=== PATIENT | female | born 1970 | race Two or more races ===

== ENCOUNTER → 2018-03-01 | Outpatient (CLI) | payer BC ==
--- NOTE | 2018-03-06 10:05 | USB ---
Reason for exam: clinical finding. History: Family history of breast cancer in maternal aunt at age 40. Took hormonal contraceptives for 6 years beginning at age 18. Indicated problem(s): palpable abnormality in the left breast. Physical Findings: Nurse Summary: Patient complains of left breast lump x 4 days, 1.5cm movable nodule 2 o'clock (nurse mj). US Breast BILAT Right complete breast ultrasound includes all four quadrants, the retroareolar region and axilla. Finding demonstrates a 8mm oval, cystic lesion at 11 o'clock and a 4mm oval, cystic lesion at 10 o'clock. Left complete breast ultrasound includes all four quadrants, the retroareolar region and axilla. Finding demonstrates a 18 x 13 x 16mm thick walled cyst with debris at 2 o'clock-peripheral vascular flow irregular margins biopsy recommended and a 11mm oval, cystic lesion at 11 o'clock. These results were verbally communicated with the patient and result sheet given to the patient on 03/01/18. ASSESSMENT: Suspicious, BI-RAD 4 RECOMMENDATION: Ultrasound core biopsy of the left breast. (2 o'clock) Called Dr. Pruett with mammographic findings and patient requests to see Dr. Pruett prior to biopsy or seeing surgeon. PRELIMINARY REPORT CALLED AND FAXED TO ON 03/06/18.
--- NOTE | 2018-03-06 10:06 | MM ---
Reason for exam: clinical finding. Last mammogram was performed 3 years and 6 months ago. History: Family history of breast cancer in maternal aunt at age 40. Took hormonal contraceptives for 6 years beginning at age 18. Indicated problem(s): palpable abnormality in the left breast. MG 3D Diag Mammo W/Cad KATIE Bilateral CC and MLO view(s) were taken. Prior study comparison: August 29, 2014, bilateral MG screening mammo w CAD. The breast tissue is extremely dense which could obscure a lesion on mammography. There is no discrete abnormality. BB turpin palpable abnormality. These results were verbally communicated with the patient and result sheet given to the patient on 03/01/18. ASSESSMENT: Benign, BI-RAD 2 RECOMMENDATION: Surgical consultation and ultrasound core biopsy of the left breast. Called Dr. Pruett with mammographic findings and patient requests to see Dr. Pruett prior to biopsy or seeing surgeon. PRELIMINARY REPORT CALLED AND FAXED TO ON 03/06/18.
== END | disposition home or self-care (01) ==
LOC: RADUSWWP 15:21
PROVIDERS: ATTEND Family Medicine
DX: R92.8 Other abnormal and inconclusive findings on diagnostic imaging of breast (principal)
CPT/HCPCS: 77062; 77066

== ENCOUNTER 2019-09-03 14:32 | Emergency (ER) | payer BC ==
[2019-09-03 14:51] VITALS: RESP 16
[2019-09-03] MEDS ORDERED: ONDANSETRON 4 MG/2 ML VIAL IVP STA (15:34)
[2019-09-03] MEDS ORDERED: SODIUM CHLORIDE 0.9% 1,000 ML IV STA ×2 (15:34)
[2019-09-03] MEDS ORDERED: KETOROLAC 30 MG/ML 1 ML VIAL IVP STA (15:34)
[2019-09-03] MEDS ORDERED: PANTOPRAZOLE 40 MG/10 ML VIAL IVP STA (15:34)
--- NOTE | 2019-09-03 16:12 | ED ---
Abdominal Pain HPI - General Chief Complaint: Abdominal Pain Stated Complaint: Abd pain Time Seen by Provider: 09/03/19 15:18 Source: patient, RN notes reviewed, old records reviewed Mode of arrival: ambulatory Limitations: no limitations - History of Present Illness Initial Comments: Patient is a 49-year-old female who presents emergency department today for evaluation for abdominal pain, concern for constipation, also episodes of vomiting and abdominal distention. Patient states that she saw her primary care doctor and they were told that she was quite constipated. She's been doing MiraLAX and stool softeners to promote bowel movements but has been unsuccessful. Patient states that she is a suppository did have a very small loose stool afterwards. She denies passing gas. Surgical history includes C section - Related Data Home Medications Medication Instructions Recorded Confirmed Ibuprofen [Advil] 200 mg PO Q8HR PRN 09/03/19 09/03/19 Magnesium 200 mg PO DAILY 09/03/19 09/03/19 Multivitamins, Thera [Multivitamin 1 tab PO DAILY 09/03/19 09/03/19 (formulary)] Previous Rx's Medication Instructions Recorded Ciprofloxacin HCl [Cipro] 500 mg PO BID #20 tab 09/03/19 Ondansetron [Zofran ODT] 4 mg PO Q8HR #12 tab 09/03/19 metroNIDAZOLE [Flagyl] 500 mg PO TID #30 tab 09/03/19 Allergies Allergy/AdvReac Type Severity Reaction Status Date / Time No Known Allergies Allergy Verified 09/04/19 20:05 Review of Systems ROS Statement: Those systems with pertinent positive or pertinent negative responses have been documented in the HPI. ROS Other: All systems not noted in ROS Statement are negative. Past Medical History Past Medical History: No Reported History History of Any Multi-Drug Resistant Organisms: None Reported Past Surgical History: Section Past Psychological History: No Psychological Hx Reported Smoking Status: Never smoker Past Alcohol Use History: Occasional Past Drug Use History: None Reported General Exam - General Exam Comments Initial Comments: Is a 49-year-old female. Patient is in moderate discomfort, appears somewhat anxious as well. Limitations: no limitations General appearance: alert, in no apparent distress Head exam: Present: atraumatic, normocephalic, normal inspection Eye exam: Present: normal appearance, PERRL, EOMI. Absent: scleral icterus, conjunctival injection, periorbital swelling ENT exam: Present: normal exam, mucous membranes moist Neck exam: Present: normal inspection. Absent: tenderness, meningismus, lymphadenopathy Respiratory exam: Present: normal lung sounds bilaterally. Absent: respiratory distress, wheezes, rales, rhonchi, stridor Cardiovascular Exam: Present: regular rate, normal rhythm, normal heart sounds. Absent: systolic murmur, diastolic murmur, rubs, gallop, clicks GI/Abdominal exam: Present: soft, normal bowel sounds. Absent: distended, tenderness, guarding, rebound, rigid Extremities exam: Present: normal inspection, full ROM, normal capillary refill. Absent: tenderness, pedal edema, joint swelling, calf tenderness Back exam: Present: normal inspection Neurological exam: Present: alert, oriented X3, CN II-XII intact Psychiatric exam: Present: normal affect, normal mood Skin exam: Present: warm, dry, intact, normal color. Absent: rash Course Vital Signs 09/03/19 09/03/19 14:47 19:08 Temperature 98.1 F 98.0 F Pulse Rate 81 87 Respiratory 16 16 Rate Blood Pressure 117/75 117/87 O2 Sat by Pulse 98 99 Oximetry Medical Decision Making - Medical Decision Making 49 year old female with abdominal pain, distension, nausea, and vomiting for 3 days. Patient is given fluids labwork obtained. Patient's labwork shows evidence of dehydration. Positive ketones in urine. Hypokalemia. Due to the distention and CT was ordered. There is findings of new ascites, and ileus. I discussed that I like to admit the Patient for ileus. She stated that she preferred to go home she was feeling better after receiving IV fluids and pain medicine emergency. I did discuss that this could be concerning but we'll treat the Patient with antibiotics at this time even if she does leave AMA. 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 I Discussed the case with Dr. Topete. - Lab Data Result diagrams: 09/03/19 14:05 09/03/19 14:05 Lab Results 09/03/19 09/03/19 09/03/19 Range/Units 14:05 14:05 14:05 WBC 7.0 (3.8-10.6) k/uL RBC 4.41 (3.80-5.40) m/uL Hgb 13.6 (11.4-16.0) gm/dL Hct 40.5 (34.0-46.0) % MCV 91.9 (80.0-100.0) fL MCH 30.9 (25.0-35.0) pg MCHC 33.6 (31.0-37.0) g/dL RDW 12.3 (11.5-15.5) % Plt Count 251 (150-450) k/uL Neutrophils % 79 % Lymphocytes % 14 % Monocytes % 5 % Eosinophils % 1 % Basophils % 1 % Neutrophils # 5.5 (1.3-7.7) k/uL Lymphocytes # 0.9 L (1.0-4.8) k/uL Monocytes # 0.3 (0-1.0) k/uL Eosinophils # 0.1 (0-0.7) k/uL Basophils # 0.0 (0-0.2) k/uL PT 10.8 (9.0-12.0) sec INR 1.0 (<1.2) APTT 28.6 (22.0-30.0) sec Sodium 139 (137-145) mmol/L Potassium 3.3 L (3.5-5.1) mmol/L Chloride 103 (98-107) mmol/L Carbon Dioxide 24 (22-30) mmol/L Anion Gap 12 mmol/L BUN 9 (7-17) mg/dL Creatinine 0.63 (0.52-1.04) mg/dL Est GFR (CKD-EPI)AfAm >90 (>60 ml/min/1.73 sqM) Est GFR (CKD-EPI)NonAf >90 (>60 ml/min/1.73 sqM) Glucose 101 H (74-99) mg/dL Plasma Lactic Acid Dennis (0.7-2.0) mmol/L Calcium 9.4 (8.4-10.2) mg/dL Total Bilirubin 0.7 (0.2-1.3) mg/dL AST 19 (14-36) U/L ALT 18 (9-52) U/L Alkaline Phosphatase 57 (38-126) U/L Total Protein 7.4 (6.3-8.2) g/dL Albumin 4.5 (3.5-5.0) g/dL Amylase 72 (30-110) U/L Lipase 93 (23-300) U/L Urine Color Urine Appearance (Clear) Urine pH (5.0-8.0) Ur Specific [place] (1.001-1.035) Urine Protein (Negative) Urine Glucose (UA) (Negative) Urine Ketones (Negative) Urine Blood (Negative) Urine Nitrite (Negative) Urine Bilirubin (Negative) Urine Urobilinogen (<2.0) mg/dL Ur Leukocyte Esterase (Negative) Urine RBC (0-5) /hpf Urine WBC (0-5) /hpf Ur Squamous Epith Cells (0-4) /hpf Amorphous Sediment (None) /hpf Urine Bacteria (None) /hpf Hyaline Casts (0-2) /lpf Urine Mucus (None) /hpf 09/03/19 09/03/19 Range/Units 14:05 16:20 WBC (3.8-10.6) k/uL RBC (3.80-5.40) m/uL Hgb (11.4-16.0) gm/dL Hct (34.0-46.0) % MCV (80.0-100.0) fL MCH (25.0-35.0) pg MCHC (31.0-37.0) g/dL RDW (11.5-15.5) % Plt Count (150-450) k/uL Neutrophils % % Lymphocytes % % Monocytes % % Eosinophils % % Basophils % % Neutrophils # (1.3-7.7) k/uL Lymphocytes # (1.0-4.8) k/uL Monocytes # (0-1.0) k/uL Eosinophils # (0-0.7) k/uL Basophils # (0-0.2) k/uL PT (9.0-12.0) sec INR (<1.2) APTT (22.0-30.0) sec Sodium (137-145) mmol/L Potassium (3.5-5.1) mmol/L Chloride (98-107) mmol/L Carbon Dioxide (22-30) mmol/L Anion Gap mmol/L BUN (7-17) mg/dL Creatinine (0.52-1.04) mg/dL Est GFR (CKD-EPI)AfAm (>60 ml/min/1.73 sqM) Est GFR (CKD-EPI)NonAf (>60 ml/min/1.73 sqM) Glucose (74-99) mg/dL Plasma Lactic Acid Dennis 0.8 (0.7-2.0) mmol/L Calcium (8.4-10.2) mg/dL Total Bilirubin (0.2-1.3) mg/dL AST (14-36) U/L ALT (9-52) U/L Alkaline Phosphatase (38-126) U/L Total Protein (6.3-8.2) g/dL Albumin (3.5-5.0) g/dL Amylase (30-110) U/L Lipase (23-300) U/L Urine Color Yellow Urine Appearance Cloudy H (Clear) Urine pH 5.5 (5.0-8.0) Ur Specific [place] 1.030 (1.001-1.035) Urine Protein 1+ H (Negative) Urine Glucose (UA) Negative (Negative) Urine Ketones 4+ H (Negative) Urine Blood Small H (Negative) Urine Nitrite Negative (Negative) Urine Bilirubin Negative (Negative) Urine Urobilinogen <2.0 (<2.0) mg/dL Ur Leukocyte Esterase Moderate H (Negative) Urine RBC 8 H (0-5) /hpf Urine WBC 29 H (0-5) /hpf Ur Squamous Epith Cells 4 (0-4) /hpf Amorphous Sediment Occasional H (None) /hpf Urine Bacteria Rare H (None) /hpf Hyaline Casts 1 (0-2) /lpf Urine Mucus Moderate H (None) /hpf 09/03/19 20:37 EKG shows normal sinus rhythm normal EKG. Ventricular rate of [address] interval is 162 ms. QRS duration is 74 ms. QT QTc is 414/416 ms. - Radiology Data Radiology results: report reviewed Mild abdominal ascites, dilated large bowel and mild large owel wall thickening suggestive of ilues and colitis. Disposition Clinical Impression: Ileus, Colitis, UTI (urinary tract infection), Ascites Disposition: Left Against Medical Advice Condition: Stable Instructions (If sedation given, give patient instructions): Ileus (ED), Colitis (ED) Additional Instructions: Patient is have clear liquid diet. Patient should increase activity such as holding walking. Remain hydrated. Take the antibiotics as prescribed. Patient follow-up with your primary care doctor tomorrow. Prescriptions: Ciprofloxacin HCl [Cipro] 500 mg PO BID #20 tab metroNIDAZOLE [Flagyl] 500 mg PO TID #30 tab Ondansetron [Zofran ODT] 4 mg PO Q8HR #12 tab Is patient prescribed a controlled substance at d/c from ED?: No Referrals: Afshan Pruett DO [Primary Care Provider] - 1-2 days Willy Agrawal MD [STAFF PHYSICIAN] - 1-2 days Time of Disposition: 18:27
[2019-09-03 16:15] LABS: Basophils % (A) 1 %; Eosinophils # (A) 0.1 k/uL (0-0.7); Eosinophils % (A) 1 %; HCT 40.5 % (34.0-46.0); HGB 13.6 gm/dL (11.4-16.0); Lymphocytes # (A) 0.9 k/uL (1.0-4.8); Lymphocytes % (A) 14 %; MCH 30.9 pg (25.0-35.0); MCHC 33.6 g/dL (31.0-37.0); MCV 91.9 fL (80.0-100.0); Mean Platelet Volume 6.1; Monocytes # (A) 0.3 k/uL (0-1.0); Monocytes % (A) 5 %; Neutrophils # (A) 5.5 k/uL (1.3-7.7); Neutrophils % (A) 79 %; Platelet Count 251 k/uL (150-450); RBC 4.41 m/uL (3.80-5.40); RDW 12.3 % (11.5-15.5)
--- NOTE | 2019-09-03 16:21 | XR ---
KUB HISTORY: Abdominal pain, nausea and vomiting Frontal KUB submitted on 2 images and correlated to prior abdomen film 11/19/2010 There are air-fluid levels with air-filled loops of small and large bowel. Lung bases are clear. No e vident pneumoperitoneum. Bone mineralization is normal. No evident pathologic calcification. Bone min eralization is normal. Probable phleboliths in the pelvis. IMPRESSION: Findings may be indicative of enteritis. Correlate and follow-up as indicated.
[2019-09-03 16:22] LABS: Amorphous Sediment,Urine Occasional /hpf; Appearance,Urine Cloudy (Clear); Bacteria,Urine Rare /hpf; Bilirubin,Urine Negative (Negative); Blood,Urine Small (Negative); Color,Urine Yellow; Glucose,Urine (UA) Negative (Negative); Hyaline Casts,Urine 1 /lpf (0-2); Ketones,Urine 4+ (Negative); Leukocyte Esterase,Urine Moderate (Negative); Mucus,Urine Moderate /hpf; Nitrite,Urine Negative (Negative); PH, Urine 5.5 (5.0-8.0); Protein,Urine 1+ (Negative); RBC,Urine 8 /hpf (0-5); Squamous Epithelial Cell,Urine 4 /hpf (0-4); Urobilinogen,Urine <2.0 mg/dL (<2.0)
[2019-09-03 16:26] LABS: ALT 18 U/L (9-52); AST 19 U/L (14-36); African American GFR (CKD) >90 (>60 ml/min/1.73 sqM); Albumin 4.5 g/dL (3.5-5.0); Alkaline Phosphatase 57 U/L (38-126); Amylase 72 U/L (30-110); Anion Gap 12 mmol/L; Blood Urea Nitrogen 9 mg/dL (7-17); Calcium 9.4 mg/dL (8.4-10.2); Carbon Dioxide 24 mmol/L (22-30); Chloride 103 mmol/L (98-107); Glucose 101 mg/dL (74-99); Non-African American GFR(CKD) >90 (>60 ml/min/1.73 sqM); Potassium 3.3 mmol/L (3.5-5.1); Sodium 139 mmol/L (137-145); Total Bilirubin 0.7 mg/dL (0.2-1.3); Total Protein 7.4 g/dL (6.3-8.2)
[2019-09-03 16:30] LABS: Partial Thromboplastin Time 28.6 sec (22.0-30.0); Prothrombin Time 10.8 sec (9.0-12.0)
--- NOTE | 2019-09-03 17:23 | CT ---
EXAMINATION TYPE: CT abdomen pelvis w con DATE OF EXAM: 09/03/2019 COMPARISON: None HISTORY: Upper Abdominal pain with constipation, nausea and vomiting CT DLP: 570.2 mGycm Automated exposure control for dose reduction was used. TECHNIQUE: Helical acquisition of images was performed from the lung bases through the pelvis. CONTRAST: Performed without Oral Contrast and with IV Contrast, patient injected with 100 mL of Isovue 300. FINDINGS: Lung bases are clear. There is no pleural effusion. There is no pericardial effusion. Liver and spleen appear normal. Bile ducts are not dilated. There is a large amount of retained fecal material in the large bowel. There is mild large bowel wall thickening. There is no pancreatic mass. Gallbladder appears normal. Stomach is intact. There is no adrenal mass. Kidneys show satisfactory c ontrast opacification. There is no hydronephrosis. There is normal excretion on the delayed images. T here is no retroperitoneal adenopathy. There is mild free fluid in the abdomen. Bladder distends smoo thly. Uterus is slightly retroverted. Lumbar spine is intact. I see no bony destructive process. Ther e is no evidence of free air. I see no definite mesenteric edema. There is gas down to the rectum. I do not see evidence for mechanical bowel obstruction. IMPRESSION: THERE IS MILD ABDOMINAL ASCITES. THERE IS DILATED LARGE BOWEL AND MILD LARGE BOWEL WALL THICKENING GREGORIO GGESTIVE OF SIGNIFICANT ILEUS AND NONSPECIFIC COLITIS. No free air.
[2019-09-03 19:09] VITALS: BP 117/87; PULSE 87; TEMP 98
== END 2019-09-03 19:09 | disposition left against medical advice (07) ==
LOC: EC 14:32
DX: K52.9 Noninfective gastroenteritis and colitis, unspecified (principal); K56.7 Ileus, unspecified; N39.0 Urinary tract infection, site not specified; R18.8 Other ascites; E87.6 Hypokalemia; E86.0 Dehydration; R82.4 Acetonuria
CPT/HCPCS: 99285; 96374; 96375 ×2; 96361 ×3; 36415; 93005; 80053; 82150; 83605; 83690; 85025; 85610; 85730; 81001; 87086; 74018; 74177; J2405; J1885; C9113; Q9967

== ENCOUNTER 2019-09-04 20:00 | Inpatient (IN) | payer BC ==
[2019-09-04] MEDS ORDERED: KETOROLAC 30 MG/ML 1 ML VIAL IVP STA (20:14)
[2019-09-04] MEDS ORDERED: SODIUM CHLORIDE 0.9% 1,000 ML IV STA ×2 (20:14)
--- NOTE | 2019-09-04 20:15 | ED ---
Abdominal Pain HPI - General Source: patient Mode of arrival: ambulatory Limitations: no limitations <Dunia Bragg - Last Filed: 09/04/19 22:29> <Cara Lance - Last Filed: 09/10/19 02:18> - General Chief Complaint: Abdominal Pain Stated Complaint: Abd pain Time Seen by Provider: 09/04/19 20:06 - History of Present Illness Initial Comments: 49-year-old female presenting today for chief complaint of abdominal pain and vomiting. Patient states that she presented yesterday for abdominal pain nausea vomiting. She was found have ileus and colitis with noted ascites as well. It was recommended patient be admitted for general surgery consultation. Patient left AGAINST MEDICAL ADVICE. She returned today for persistent pain and increasing vomiting. She states the pain is in the epigastric region of the a bdomen sharp. Patient states she continues to experience nausea has had 2 episodes of vomiting this evening. Patient denies any significant increase in the pain however it has been consistent. Patient states she still has not passed flatus in 1 week or had a BM. Patient has had perviosu . No other noted abominal surgeries. Patient states her preferred surgeon is Dr. Coley. Patient denies chest pain, SOB, melena, hematochezia, fever or other complaints. Upon arrival patient appear uncomfortable. VS stable. (Dunia Bragg) - Related Data Home Medications Medication Instructions Recorded Confirmed No Known Home Medications 09/04/19 09/04/19 Allergies Allergy/AdvReac Type Severity Reaction Status Date / Time No Known Allergies Allergy Verified 09/04/19 21:05 Review of Systems ROS Other: All systems not noted in ROS Statement are negative. <Dunia Bragg - Last Filed: 09/04/19 22:29> ROS Other: All systems not noted in ROS Statement are negative. <Cara Lance - Last Filed: 09/10/19 02:18> ROS Statement: Those systems with pertinent positive or pertinent negative responses have been documented in the HPI. Past Medical History Past Medical History: No Reported History History of Any Multi-Drug Resistant Organisms: None Reported Past Surgical History: Section Past Psychological History: No Psychological Hx Reported Smoking Status: Never smoker Past Alcohol Use History: Occasional Past Drug Use History: None Reported <Dunia Bragg - Last Filed: 09/04/19 22:29> General Exam Limitations: no limitations <Dunia Bragg - Last Filed: 09/04/19 22:29> - General Exam Comments Initial Comments: General: The patient is awake and alert, in no distress Eye: +3 mm p upils are equal, round and reactive to light, extra-ocular movements are intact. No nystagmus. There is normal conjunctiva bilaterally. No signs of icterus. Ears, nose, mouth and throat: There are moist mucous membranes and no oral lesions. Neck: The neck is supple, there is no tenderness or JVD. Cardiovascular: There is a regular rate and rhythm. No murmur, rub or gallop is appreciated. Respiratory: Lungs are clear to auscultation, respirations are non-labored, breath sounds are equal. No wheezes, stridor, rales, or rhonchi. Gastrointestinal: Soft, non-distended, epigastric tenderness to palpation remaining abomen is without masses or organomegaly noted. (-) murphys sign. sli ght guarding no rebound tenderness. No CVA tenderness. Bowel sounds are unremarkable. Musculoskeletal: Normal ROM, no tenderness. Strength 5/5. Sensation intact. Radial pulses equal bilaterally 2+. Neurological: A&O x 3. CN II-XII intact grossly, There are no obvious motor or sensory deficits. Coordination appears grossly intact. Speech is normal. Skin: Skin is warm and dry and no rashes or lesions are noted. Psychiatric: Cooperative, appropriate mood & affect, normal judgment. (Dunia Bragg) Course Vital Signs 09/04/19 09/04/19 09/04/19 20:02 21:04 21:56 Temperature 98.0 F 98.7 F Pulse Rate 74 68 82 Respiratory 18 18 18 Rate Blood Pressure 117/74 115/72 118/68 O2 Sat by Pulse 100 100 100 Oximetry Medical Decision Making - Lab Data Result diagrams: 09/04/19 20:15 09/04/19 20:15 <Dunia Bragg - Last Filed: 09/04/19 22:29> - Lab Data Result diagrams: 09/04/19 20:15 09/04/19 20:15 <Cara Lance - Last Filed: 09/10/19 02:18> - Medical Decision Making 49-year-old female presenting for persistent abdominal pain vomiting obstipation and constipation noted. Ileus present on CT yesterday as well as ascites and a colitis. Patient has no significant increase in pain however is persistent KUB shows worsening ileus concerning for developing bowel obstruction. As well as concern with the new onset of ascites with no known liver disease or comorbities. Patient will be admitted NPO with surgical consultation. On IVF and pain medications, zosyn initiated for colitis in the ED. Patient requesting Dr. Bolton for surgical consultation (states person friend). Discussed case with attending Dr. Lance who is agreeable to admission and spoke with accepting admitting provider. (Dunia Bragg) I was available for consultation in the emergency department. The history and physical exam were done by the midlevel provider. I was consulted for this patie nts care. I reviewed the case with the midlevel provider and based on their presentation of the patient, I agree with the assessment, medical decision making and plan of care as documented. Chart was dictated using [employer] dictation software. Attempts were made to correct any dictation errors however some typographical errors may persist. (Cara Lance) - Lab Data Lab Results 09/04/19 09/04/19 09/04/19 Range/Units 20:15 20:15 20:15 WBC 8.4 (3.8-10.6) k/uL RBC 4.52 (3.80-5.40) m/uL Hgb 14.2 (11.4-16.0) gm/dL Hct 41.6 (34.0-46.0) % MCV 91.9 (80.0-100.0) fL MCH 31.4 (25.0-35.0) pg MCHC 34.1 (31.0-37.0) g/dL RDW 12.2 (11.5-15.5) % Plt Count 285 (150-450) k/uL Neutrophils % 87 % Lymphocytes % 7 % Monocytes % 4 % Eosinophils % 0 % Basophils % 0 % Neutrophils # 7.4 (1.3-7.7) k/uL Lymphocytes # 0.6 L (1.0-4.8) k/uL Monocytes # 0.4 (0-1.0) k/uL Eosinophils # 0.0 (0-0.7) k/uL Basophils # 0.0 (0-0.2) k/uL Sodium 136 L (137-145) mmol/L Potassium 4.1 (3.5-5.1) mmol/L Chloride 101 (98-107) mmol/L Carbon Dioxide 21 L (22-30) mmol/L Anion Gap 14 mmol/L BUN 11 (7-17) mg/dL Creatinine 0.69 (0.52-1.04) mg/dL Est GFR (CKD-EPI)AfAm >90 (>60 ml/min/1.73 sqM) Est GFR (CKD-EPI)NonAf >90 (>60 ml/min/1.73 sqM) Glucose 99 (74-99) mg/dL Plasma Lactic Acid Dennis 1.1 (0.7-2.0) mmol/L Calcium 9.6 (8.4-10.2) mg/dL Total Bilirubin 0.9 (0.2-1.3) mg/dL AST 20 (14-36) U/L ALT 18 (9-52) U/L Alkaline Phosphatase 60 (38-126) U/L Total Protein 7.9 (6.3-8.2) g/dL Albumin 4.6 (3.5-5.0) g/dL Amylase 101 (30-110) U/L Lipase 154 (23-300) U/L Disposition Is patient prescribed a controlled substance at d/c from ED?: No Time of Disposition: 21:08 Decision to Admit Reason: Admit from EC Decision Date: 09/04/19 Decision Time: 21:08 <Dunia Bragg - Last Filed: 09/04/19 22:29> <Cara Lance - Last Filed: 09/10/19 02:18> Clinical Impression: Ileus, Obstipation, Ascites, Colitis, Abdominal pain Disposition: ADMITTED IP TO THIS [facility] Condition: Stable
[2019-09-04] MEDS ORDERED: PIPERACILLIN-TAZOBACTAM 3.375 GM in SODIUM CHLORIDE 0.9% 100 ML IVPB STA (20:20)
[2019-09-04 20:42] LABS: Basophils % (A) 0 %; Eosinophils % (A) 0 %; HCT 41.6 % (34.0-46.0); HGB 14.2 gm/dL (11.4-16.0); Lymphocytes # (A) 0.6 k/uL (1.0-4.8); Lymphocytes % (A) 7 %; MCH 31.4 pg (25.0-35.0); MCHC 34.1 g/dL (31.0-37.0); MCV 91.9 fL (80.0-100.0); Mean Platelet Volume 6.2; Monocytes # (A) 0.4 k/uL (0-1.0); Monocytes % (A) 4 %; Neutrophils # (A) 7.4 k/uL (1.3-7.7); Neutrophils % (A) 87 %; Platelet Count 285 k/uL (150-450); RBC 4.52 m/uL (3.80-5.40); RDW 12.2 % (11.5-15.5); WBC 8.4 k/uL (3.8-10.6)
[2019-09-04 20:48] LABS: ALT 18 U/L (9-52); AST 20 U/L (14-36); African American GFR (CKD) >90 (>60 ml/min/1.73 sqM); Albumin 4.6 g/dL (3.5-5.0); Alkaline Phosphatase 60 U/L (38-126); Amylase 101 U/L (30-110); Anion Gap 14 mmol/L; Blood Urea Nitrogen 11 mg/dL (7-17); Calcium 9.6 mg/dL (8.4-10.2); Carbon Dioxide 21 mmol/L (22-30); Chloride 101 mmol/L (98-107); Glucose 99 mg/dL (74-99); Non-African American GFR(CKD) >90 (>60 ml/min/1.73 sqM); Potassium 4.1 mmol/L (3.5-5.1); Sodium 136 mmol/L (137-145); Total Bilirubin 0.9 mg/dL (0.2-1.3); Total Protein 7.9 g/dL (6.3-8.2)
--- NOTE | 2019-09-04 20:59 | XR ---
EXAMINATION TYPE: XR KUB DATE OF EXAM: 09/04/2019 COMPARISON: Yesterday HISTORY: Abdominal pain TECHNIQUE: 2 views upright FINDINGS: There are multiple air-fluid levels in the large bowel. There is gas and fluid distention o f the large bowel. I see no sign of free air. Lung bases are clear. There are no pathologic calcifica tions over the kidneys. There is gas seen down to the rectum. IMPRESSION: Distended large bowel with air-fluid levels consistent with ileus that is worse than yest jada.
[2019-09-04] MEDS ORDERED: MORPHINE SULFATE 4 MG/ML SYRINGE IV PRN (21:02)
[2019-09-04] MEDS ORDERED: ONDANSETRON 4 MG/2 ML VIAL IVP PRN (21:02)
[2019-09-04] MEDS ORDERED: NALOXONE 0.4 MG/ML 1 ML VIAL IV PRN (21:02)
[2019-09-04 22:07] LABS: Appearance,Urine Cloudy (Clear); Bacteria,Urine Rare /hpf; Bilirubin,Urine Negative (Negative); Blood,Urine Small (Negative); Color,Urine Yellow; Glucose,Urine (UA) Negative (Negative); Ketones,Urine 4+ (Negative); Leukocyte Esterase,Urine Moderate (Negative); Mucus,Urine Occasional /hpf; Nitrite,Urine Negative (Negative); PH, Urine 5.5 (5.0-8.0); Protein,Urine 1+ (Negative); RBC,Urine 10 /hpf (0-5); Specific Gravity,Urine 1.031 (1.001-1.035); Squamous Epithelial Cell,Urine 5 /hpf (0-4); WBC,Urine 15 /hpf (0-5)
[2019-09-04] MEDS: SODIUM CHLORIDE 0.9% 1,000 ML IV SCH (22:56)
[2019-09-05] MEDS ORDERED: TRIMETHOBENZAMIDE 100 MG/ML 2 ML VIAL IM PRN (04:39)
[2019-09-05] MEDS ORDERED: ONDANSETRON 4 MG/2 ML VIAL IVP PRN (04:40)
[2019-09-05] MEDS: KETOROLAC 30 MG/ML 1 ML VIAL IVP PRN ×2 (04:52→12:51)
--- NOTE | 2019-09-05 10:01 | P.GSCN ---
History of Present Illness Consult date: 09/05/19 Reason for Consult: Suspected colonic obstruction History of present illness: 49-year-old female came to the hospital last night and was admitted through the emergency department. I was contacted this morning with this consultation. Patient is known to me socially. She over the last 1-2 weeks has had progressive constipation resulting in essentially obstipation. Had a very small amount of flatus this morning which was the first time she passed gas in the last 2 days. Describe bloating and loud bowel sounds. She has severe cramps at times. Says her pain is improved this morning from yesterday evening. No history of similar events. No rectal bleeding. Denies history of diverticulitis. No family history of colon cancer. No weight loss. Some anorexia over the last 1-2 weeks. CAT scan was performed 2 days ago. Apparently she was advised to be admitted at that time but went home instead. CAT scan was reviewed. There does appear to be a transition point at the junction between the descending colon and sigmoid. This is somewhat suspicious for focal circumferential mass lesion. Colon distally is decompressed. Cecum on CAT scan measures proximally 7 cm. Abdominal x-rays last night show persistent colonic dilation. She has had vomiting over the last 2-3 days. None this morning. She is nothing by mouth. White blood cell count is normal. She is afebrile without tachycardia. Review of Systems The patient denies any acute changes in vision or hearing, no dysphagia or odynophagia, no chest pain or shortness of breath, no dysuria or hematuria, no headache, no runny nose, no rectal bleeding or melena, no unexplained weight loss Past Medical History Past Medical History: No Reported History History of Any Multi-Drug Resistant Organisms: None Reported Past Surgical History: Section Past Anesthesia/Blood Transfusion Reactions: No Reported Reaction Past Psychological History: No Psychological Hx Reported Smoking Status: Never smoker Past Alcohol Use History: Occasional Past Drug Use History: None Reported - Past Family History Father Family Medical History: Congestive Heart Failure (CHF) Sister(s) Family Medical History: No Reported History Medications and Allergies Home Medications Medication Instructions Recorded Confirmed Type No Known Home Medications 09/04/19 09/04/19 History Allergies Allergy/AdvReac Type Severity Reaction Status Date / Time No Known Allergies Allergy Verified 09/04/19 21:05 Surgical - Exam Vital Signs Temp Pulse Resp BP Pulse Ox 98.0 F 74 18 117/74 100 09/04/19 20:02 09/04/19 20:02 09/04/19 20:02 09/04/19 20:02 09/04/19 20:02 Physical exam: General: Well-developed, well-nourished HEENT: Normocephalic, sclerae nonicteric Abdomen: Soft but distended, tympanic, mild diffuse tenderness, no rebound or guarding Extremities: No edema Neuro: Alert and oriented Results - Labs 09/04/19 20:15 09/04/19 20:15 Abnormal Lab Results - Last 24 Hours (Table) 09/04/19 09/04/19 09/04/19 Range/Units 20:15 20:15 21:40 Lymphocytes # 0.6 L (1.0-4.8) k/uL Sodium 136 L (137-145) mmol/L Carbon Dioxide 21 L (22-30) mmol/L Urine Appearance Cloudy H (Clear) Urine Protein 1+ H (Negative) Urine Ketones 4+ H (Negative) Urine Blood Small H (Negative) Ur Leukocyte Esterase Moderate H (Negative) Urine RBC 10 H (0-5) /hpf Urine WBC 15 H (0-5) /hpf Ur Squamous Epith Cells 5 H (0-4) /hpf Urine Bacteria Rare H (None) /hpf Urine Mucus Occasional H (None) /hpf Diabetes panel 09/04/19 Range/Units 20:15 Sodium 136 L (137-145) mmol/L Potassium 4.1 (3.5-5.1) mmol/L Chloride 101 (98-107) mmol/L Carbon Dioxide 21 L (22-30) mmol/L BUN 11 (7-17) mg/dL Creatinine 0.69 (0.52-1.04) mg/dL Glucose 99 (74-99) mg/dL Calcium 9.6 (8.4-10.2) mg/dL AST 20 (14-36) U/L ALT 18 (9-52) U/L Alkaline Phosphatase 60 (38-126) U/L Total Protein 7.9 (6.3-8.2) g/dL Albumin 4.6 (3.5-5.0) g/dL Calcium panel 09/04/19 Range/Units 20:15 Calcium 9.6 (8.4-10.2) mg/dL Albumin 4.6 (3.5-5.0) g/dL Pituitary panel 09/04/19 Range/Units 20:15 Sodium 136 L (137-145) mmol/L Potassium 4.1 (3.5-5.1) mmol/L Chloride 101 (98-107) mmol/L Carbon Dioxide 21 L (22-30) mmol/L BUN 11 (7-17) mg/dL Creatinine 0.69 (0.52-1.04) mg/dL Glucose 99 (74-99) mg/dL Calcium 9.6 (8.4-10.2) mg/dL Adrenal panel 09/04/19 Range/Units 20:15 Sodium 136 L (137-145) mmol/L Potassium 4.1 (3.5-5.1) mmol/L Chloride 101 (98-107) mmol/L Carbon Dioxide 21 L (22-30) mmol/L BUN 11 (7-17) mg/dL Creatinine 0.69 (0.52-1.04) mg/dL Glucose 99 (74-99) mg/dL Calcium 9.6 (8.4-10.2) mg/dL Total Bilirubin 0.9 (0.2-1.3) mg/dL AST 20 (14-36) U/L ALT 18 (9-52) U/L Alkaline Phosphatase 60 (38-126) U/L Total Protein 7.9 (6.3-8.2) g/dL Albumin 4.6 (3.5-5.0) g/dL Assessment and Plan (1) Colonic obstruction Narrative/Plan: CAT scan findings discussed with the patient. We will try to obtain barium enema this morning to confirm colonic obstruction. Options of diverting ostomy, colonic resection with end ostomy, and tertiary care transferred for possible chronic stent placement all discussed as options if diagnosis of colonic obstruction confirmed. I will reached out to one of the advanced endoscopist at [facility] see if they would be available for placement over the next few days. Keep nothing by mouth for now. Continue antibiotics in the event that this represents a small focal area of diverticulitis and given the patient's urinalysis suggesting possible UTI. We'll follow closely. Current Visit: Yes Status: Acute Code(s): K56.609 - UNSP INTESTNL OBST, UNSP TO PARTIAL VERSUS COMPLETE OBST SNOMED Code(s): 48020813
[2019-09-05] MEDS: SODIUM CHLORIDE 0.9% 1,000 ML IV SCH (11:23)
[2019-09-05] MEDS ORDERED: PIPERACILLIN-TAZOBACTAM 3.375 GM in SODIUM CHLORIDE 0.9% 100 ML IVPB SCH (12:00)
--- NOTE | 2019-09-05 12:04 | P.PN ---
Progress Note - Text Progress Note Date: 09/05/19 Films reviewed with radiology. Apple core lesion suspected distal descending colon. Films were actually reviewed with the patient and her at the bedside. Spoke with GI at [facility]. They are willing to try to arrange for colon stent placement in the hopes that colostomy could be avoided. She is agreeable to transfer. I spoke with the transfer team at [facility] and the admitting hospitalist. Plans are for admission to internal medicine with GI and colorectal surgery on consult.
[2019-09-05 12:16] VITALS: BP 109/68; PULSE 75; RESP 17; TEMP 98.1
[2019-09-05] MEDS ORDERED: metroNIDAZOLE-NS PMX 500 MG in SALINE 1 100ML.BAG IVPB SCH (16:00)
--- NOTE | 2019-09-05 20:34 | HP ---
HISTORY AND PHYSICAL This is a combined History and Physical and Discharge Summary. DATE OF SERVICE: 09/05/2019 I am covering for Dr. George. CHIEF COMPLAINT: Abdominal pain and constipation and colonic obstruction. HISTORY OF PRESENT ILLNESS: 49-year-old woman with a past medical history of section and no other medical problems, being followed Dr. Afshan Pruett in the outpatient setting, is complaining of abdomen discomfort for the past several days. The patient had progressive constipation and then obstipation. Patient also had abdominal pain and the patient came to [facility] [address] scan was done which showed multiple abnormalities. Admission recommended, but the patient went home but with the same increasing symptoms, patient came back and admitted for evaluation and treatment. Evaluation of the CT scan showed significant lesions, possibly apple core lesion in the distal sigmoid causing chronic obstruction, possible malignancy. Dr. Coley was consulted. Dr. Coley discussed the patient with [facility] endoscopist and as well as hospitalist and the patient will be transferred to tertiary care center for further evaluation and treatment. The patient would like to avoid a colostomy and colonic stent is a possibility according Dr. Coley. There is no history of fever, rigors. No headache or loss of consciousness. No chest pain, palpitations, hematochezia or melena at this time. PAST MEDICAL HISTORY: History of section. No other significant past medical history. MEDICATIONS: Prior to admission none. ALLERGIES: None. FAMILY HISTORY: History of CHF in the family. SOCIAL HISTORY: History of smoking. No alcohol intake. REVIEW OF SYSTEMS: ENT: No diminished vision. CARDIOVASCULAR: No angina or palpitations. RESPIRATORY: As mentioned earlier. GI: As mentioned earlier. : No dysuria. NERVOUS SYSTEM: Not numbness or weakness. ALLERGY: No asthma or hayfever. MUSCULOSKELETAL: As mentioned earlier. HEMATOLOGY/ONCOLOGY: As mentioned earlier. ENDOCRINE: No history of diabetes or hyperthyroidism. CONSTITUTIONAL: As mentioned earlier. DERMATOLOGY: Negative. PSYCHIATRY: As mentioned earlier. PHYSICAL EXAMINATION: Alert and oriented x3. Pulse is 75, blood pressure 109/68, respirations 17, temperature 98, pulse ox 98% on room air. HEENT: Conjunctivae normal. Oral mucosa moist. NECK: No jugular venous distention. No lymph node enlargement. CARDIOVASCULAR: S1, S2. RESPIRATORY: Diminished breath sounds at the bases. No rhonchi, no crackles. ABDOMEN: Soft. Mild diffuse ( ). Mild diffuse tenderness also present. Flanks are dull. Bowel sounds diminished. LEGS: No edema, no swelling. NERVOUS SYSTEM: Higher functions mentioned earlier. Moves all four limbs. No focal motor or sensory deficits. LYMPHATICS: No lymph node in neck or axilla. SKIN: No rash. JOINTS: No active deforming arthropathy. LABS: CBC within normal. Sodium 136. UA noted. ASSESSMENT: 1. Abdominal pain with colonic obstruction with apple core lesion in the sigmoid colon, possibly colon cancer. The CT scan also raised a question of ascites and possible diverticulitis also. 2. Hyponatremia. 3. Severe pain. 4. History of section. 5. FULL CODE. RECOMMENDATIONS AND DISCUSSION: In this 49-year-old woman who presented with multiple medical issues, at this time I recommend continue the conservative line of treatment. Empiric antibiotics initiated by Dr. Coley. We will continue the current medications, symptomatic treatment. Otherwise, as mentioned earlier, the patient is on Flagyl and Zosyn. I would add Protonix to the current regimen and transfer to tertiary care center. Further recommendations to follow. MMODL / IJN: [id number] /
== END 2019-09-05 14:15 | disposition short-term general hospital (02) | DRG 375 ==
LOC: EC 20:00 → 3NMEDONC 21:37
PROVIDERS: ADMIT Family Medicine; ATTEND Family Medicine
DX: C18.6 Malignant neoplasm of descending colon (principal); R18.8 Other ascites; E87.1 Hypo-osmolality and hyponatremia; K52.9 Noninfective gastroenteritis and colitis, unspecified; Z87.891 Personal history of nicotine dependence; Z82.49 Family history of ischemic heart disease and other diseases of the circulatory system; Z98.891 History of uterine scar from previous surgery
CPT/HCPCS: 36415; 74018; 80053; 81001; 82150; 83605; 83690; 85025; 87040; 96365; 96366; 96375; 99285

== ENCOUNTER → 2019-10-18 | Outpatient (CLI) | payer BC ==
--- NOTE | 2019-10-21 12:46 | PE ---
EXAMINATION TYPE: PET CT fusion skull to thigh DATE OF EXAM: 10/18/2019 COMPARISON: CT dated 09/03/2019 HISTORY: Abdominal pain with constipation, nausea, and vomiting. Colonic adenocarcinoma with subseque nt segmental surgical resection of the sigmoid colon. No radiation or chemotherapy. TECHNIQUE: Following the intravenous administration of 11.07 mCi of F-18 FDG, whole body images are performed from the skull base to the midthigh. Images are reviewed on the computer in the coronal, a xial, and sagittal planes. Reconstructed rotating images are created on independent workstation and reviewed on the computer. A localization and attenuation correction CT is performed in conjunction with the PET scan. SCAN: Initial FINDINGS: Mediastinal background: 1.66 Abdominal background: 2.1 SKULL BASE AND NECK: The paranasal sinuses and mastoid air cells are well aerated. Very minimal dege nerative changes of the spine are seen. CHEST, MEDIASTINUM, AND HILAR REGION: The known bilateral 5 to 6 mm pulmonary nodules seen on the out side chest CT are below the threshold of PET CT. One is noted in the superior segment of the right lo wer lobe on image 74 and another in the anterior right lower lobe on image 83. Medial pulmonary nodul e of the left lower lobe on image 85 is questioned adjacent vasculature. Another pulmonary nodule in the right lower lobe is seen on image 86. Minimal bibasilar subsegmental atelectasis is also seen. No suspicious hypermetabolic uptake in the chest, mediastinum, or hilar regions. ABDOMEN AND PELVIS: No suspicious hypermetabolic uptake. Linear uptake is seen in the midline abdomen and pelvis with a maximum SUV of 1.9. OSSEOUS STRUCTURES: No suspicious hypermetabolic uptake. Osseous uptake diffusely is below abdominal and mediastinal background with maximum SUV of 1.5. OTHER CT: Segmental resection of the sigmoid colon with diverting ostomy is seen. The uterus is promi nent in size and there is a scant amount of free fluid in the pelvis, likely physiologic in nature. T he liver is elongated extending into the left upper quadrant. Abdominal viscera are unenhanced but of unremarkable morphology. IMPRESSION: 1. No convincing evidence of hypermetabolic metastasis within the chest, abdomen or pelvis on PET/CT. However of note there are bilateral pulmonary nodules as demonstrated on the prior outside chest CT and today's chest CT. These are below the threshold of PET CT at this time and surveillance is recomm ended. 2. Midline linear FDG avidity within the abdominopelvic ventral abdominal wall soft tissue tissues, p resumably postsurgical. Correlate with clinical exam and the site of surgical scar.
== END | disposition home or self-care (01) ==
LOC: RADPETMAIN 17:06
PROVIDERS: ATTEND Internal Medicine Hematology & Oncology
DX: M79.89 Other specified soft tissue disorders (principal); R91.8 Other nonspecific abnormal finding of lung field
CPT/HCPCS: 78815; A9552

== ENCOUNTER → 2020-02-07 | Outpatient (CLI) | payer BC ==
[2020-02-07 12:57] LABS: African American GFR (CKD) >90 (>60 ml/min/1.73 sqM); Blood Urea Nitrogen 11 mg/dL (7-17); Non-African American GFR(CKD) >90 (>60 ml/min/1.73 sqM)
--- NOTE | 2020-02-07 14:35 | CT ---
EXAMINATION TYPE: CT angio chest DATE OF EXAM: 02/07/2020 COMPARISON: 10/18/2019 PET/CT HISTORY: Pulmonary nodule CT DLP: 300 mGycm. Automated Exposure Control for Dose Reduction was Utilized. CONTRAST: CTA scan of the thorax is performed without and with IV Contrast, patient injected with 100 ml mL of Isovue 300, pulmonary embolism protocol. MIP Images are created on CT scanner and reviewed. FINDINGS: LUNGS: 5 mm pulmonary nodule in the superior segment of the right lower lobe is marked on series 11 i mage 51 and unchanged in size from the prior PET/CT of 10/18/2019. A 4 mm solid nodule along the right interlobar fissure is also unchanged size marked on image 56. Additionally a solid pulmonary nodule on image 72 measures 4 mm appearing overall unchanged from the prior and a 2.5 mm pulmonary nodule of the right lower lobe image 66 also appears unchanged. A punctate 2 mm left apical solid pulmonary no dule on image 33 is retrospectively stable from the prior PET/CT. No new suspicious pulmonary nodule seen. There is no pleural effusion or pneumothorax seen. The tracheobronchial tree is patent. MEDIASTINUM: There is satisfactory enhancement of the pulmonary artery and its branches, there is no CT evidence for pulmonary embolism. No cardiomegaly or pericardial effusion is seen. Right-sided Medi port terminates in the right atrium. Precarinal lymph node measures 9 mm in short axis and right para tracheal lymph node measures 10 mm in short axis. IMPRESSION: 1. Stability of the subcentimeter pulmonary nodules. Given this patient's history of colon carcinoma continued surveillance is recommended to ensure no interval growth. 2. Prominent right hilar lymph node can also be recess on the prior exam. This is difficult to evalua te on the prior PET/CT given lack of intravenous contrast on that examination.
== END | disposition home or self-care (01) ==
LOC: RADPROMAIN 11:56
PROVIDERS: ATTEND Internal Medicine Hematology & Oncology
DX: R91.1 Solitary pulmonary nodule (principal); R59.0 Localized enlarged lymph nodes
CPT/HCPCS: 82565; 84520; 71275; J1642; Q9967

== ENCOUNTER → 2020-06-08 | Outpatient (CLI) | payer BC ==
--- NOTE | 2020-06-10 09:59 | CT ---
EXAMINATION TYPE: CT ChestAbdPelvis w con DATE OF EXAM: 06/08/2020 COMPARISON: CTA chest 02/07/2020. PET/CT 10/18/2019 HISTORY: Follow up colon cancer CT DLP: 414.1 mGycm Automated exposure control for dose reduction was used. CONTRAST: CT scan of the chest, abdomen and pelvis is performed with Oral Contrast and with IV Contrast, patien t injected with 100 mL of Isovue 300. FINDINGS: LUNGS: Redemonstrated 5 mm pulmonary nodule of the posterior right lower lobe (5:21), unchanged from 10/18/2019 comparison. 4 mm pulmonary nodule of the right lower lobe posterolaterally (5:29) unchanged from 10/18/2019. Unchanged 3 mm right lower lobe perifissural pulmonary nodule (5:26, 9:22). There is an unchanged 3 mm somewhat triangular-shaped right upper lobe perifissural nodule which may represen t perifissural (5:22, 19:21). There is no pleural effusion or pneumothorax seen. The tracheobronchia l tree is patent. MEDIASTINUM/SOFT TISSUES: Right-sided MediPort distal tip in the cavoatrial junction. No axillary, hi lar, or mediastinal lymphadenopathy greater than 1 cm. Cardiac size is normal. No pericardial effusio n. No thoracic aortic aneurysm. LIVER: Normal. BILIARY SYSTEM: Normal. PANCREAS: Normal. SPLEEN: Normal. ADRENALS: Normal. KIDNEYS: Normal. BOWEL: Left lower quadrant diverting colostomy and distal colonic resection with Rangel's pouch. La rge volume colonic fecal debris. No evidence of bowel obstruction or thickening. PERITONEUM: Normal. LYMPH NODES: No lymphadenopathy. PELVIS: Normal. VASCULATURE: No abdominal aortic aneurysm. MUSCULOSKELETAL: No aggressive osseous destructive lesions. IMPRESSION: 1. No evidence of recurrent or metastatic colon cancer of the chest, abdomen, or pelvis. 2. Pulmonary nodules measuring up to 5 mm are unchanged versus 10/18/2019 comparison. Attention on fo llow-up cancer surveillance imaging for stability. 3. Large volume colonic fecal debris. Correlate for constipation.
== END | disposition home or self-care (01) ==
LOC: RADPROMAIN 09:29
PROVIDERS: ATTEND Internal Medicine Hematology & Oncology
DX: Z03.89 Encounter for observation for other suspected diseases and conditions ruled out (principal); C18.7 Malignant neoplasm of sigmoid colon; R91.8 Other nonspecific abnormal finding of lung field; Z95.828 Presence of other vascular implants and grafts
CPT/HCPCS: 71260; 74177; J1642; Q9967

== ENCOUNTER → 2020-12-16 | Outpatient (CLI) | payer BC ==
--- NOTE | 2020-12-18 11:31 | MM ---
Reason for exam: screening (asymptomatic). Last mammogram was performed 2 years and 10 months ago. History: Family history of breast cancer in maternal aunt at age 40. Took hormonal contraceptives for 6 years beginning at age 18. Physical Findings: A clinical breast exam by your physician is recommended on an annual basis and results should be correlated with mammographic findings. MG 3D Screening Mammo W/Cad Bilateral CC and MLO view(s) were taken. Prior study comparison: March 01, 2018, bilateral MG 3d diag mammo w/cad KATIE. August 29, 2014, bilateral MG screening mammo w CAD. The breast tissue is heterogeneously dense. This may lower the sensitivity of mammography. No significant changes when compared with prior studies. ASSESSMENT: Negative, BI-RAD 1 RECOMMENDATION: Routine screening mammogram of both breasts in 1 year.
== END | disposition home or self-care (01) ==
LOC: RADMAMWWP 13:08
PROVIDERS: ATTEND Internal Medicine Hematology & Oncology
DX: Z12.31 Encounter for screening mammogram for malignant neoplasm of breast (principal)
CPT/HCPCS: 77063; 77067

== ENCOUNTER → 2022-03-04 | Outpatient (CLI) | payer OTHER ==
--- NOTE | 2022-03-08 08:39 | MM ---
Reason for Exam: Screening (asymptomatic). Last mammogram was performed 1 year(s) and 2 month(s) ago. Patient History: Menarche at age 11. First Full-Term at age 26. Postmenopausal. Patient has history of breast feeding. Hormonal Contraceptives for 6 years from age 18 until age 24. Maternal aunt had breast cancer, age 40. Risk Values: Miriam 5 year model risk: 1.2%. NCI Lifetime model risk: 9.4%. Film Views: Bilateral CC views were taken. Bilateral MLO views were taken. Prior Study Comparison: 08/29/2014 Bilateral Screening Mammogram, [facility]. 03/01/2018 Bilateral Diagnostic Mammogram, [facility]. 12/16/2020 Bilateral Screening Mammogram, [facility]. Tissue Density: The breast tissue is heterogeneously dense. This may lower the sensitivity of mammography. Findings: Analyzed By CAD. No significant change from prior exams. Overall Assessment: Negative, BI-RAD 1 Management: Screening Mammogram of both breasts in 1 year. A clinical breast exam by your physician is recommended on an annual basis and results should be correlated with mammographic findings. Also, the patient should continue monthly self breast exams. Electronically signed and approved by: Jhony Donnelly M.D. Radiologist
== END | disposition home or self-care (01) ==
LOC: RADMAMWWP 08:20
PROVIDERS: ATTEND Internal Medicine Hematology & Oncology
DX: Z12.31 Encounter for screening mammogram for malignant neoplasm of breast (principal); Z78.0 Asymptomatic menopausal state; Z80.3 Family history of malignant neoplasm of breast
CPT/HCPCS: 77063; 77067

== ENCOUNTER → 2023-02-24 | Outpatient (CLI) | payer OTHER | END | disposition home or self-care (01) | LOC: LABWHC1 12:28 | PROVIDERS: ATTEND Family Medicine | DX: N83.292 Other ovarian cyst, left side (principal); Z85.038 Personal history of other malignant neoplasm of large intestine; Z80.49 Family history of malignant neoplasm of other genital organs; Z98.890 Other specified postprocedural states; R10.32 Left lower quadrant pain | CPT/HCPCS: 36415; 86304 ==

== ENCOUNTER 2023-10-19 10:52 | Day surgery (SDC) | payer OTHER ==
[2023-10-11 12:54] VITALS: BMI 19.5
[~2023-10-19 10:52] MED LIST: DEXAMETHASONE SOD PHOSPHATE 4 MG/ML 1 ML VIAL IV ONE; HYDROmorphone 0.5 MG/0.5 ML SYRINGE IVP PRN; LACTATED RINGERS 1,000 ML IV SCH; LIDOCAINE 1% (10MG/ML) FOR IV START INTRADERMA PRN; MIDAZOLAM 2 MG/2 ML VIAL IV PRN; ONDANSETRON 4 MG/2 ML VIAL IVP ONE
[2023-10-19] MEDS ORDERED: LIDOCAINE 1% INJ 10MG/ML (20 ML MDV) ONE (12:43)
[2023-10-19] MEDS ORDERED: NEOSTIGMINE 1 MG/ML 10 ML VIAL ONE (12:43)
[2023-10-19] MEDS ORDERED: PROPOFOL 10 MG/ML 20 ML VIAL IV ONE (12:43)
[2023-10-19] MEDS ORDERED: SUCCINYLCHOLINE CHLORIDE 200 MG/10 ML VIAL IV ONE (12:43)
[2023-10-19] MEDS ORDERED: MIDAZOLAM 2 MG/2 ML VIAL ONE (12:43)
[2023-10-19] MEDS ORDERED: ROCURONIUM 10 MG/ML (5 ML VIAL) IV ONE (12:43)
[2023-10-19] MEDS ORDERED: GLYCOPYRROLATE 0.2 MG/ML 2 ML VIAL ONE (12:43)
[2023-10-19] MEDS ORDERED: fentaNYL (PF) 50 MCG/ML 2 ML AMP ONE (12:43)
--- NOTE | 2023-10-19 14:16 | CT ---
EXAMINATION TYPE: CT chest wo con CT DLP: 286 mGycm, Automated exposure control for dose reduction was used. DATE OF EXAM: 10/19/2023 11:27 AM COMPARISON: None. . CLINICAL INDICATION:Female, 53 years old with history of ION BRONCH; PHH, ion bronch pre procedure TECHNIQUE: Noncontrast CT imaging of the chest was performed per ION BRONCH protocol. Sagittal and co tawana reformats were created for review. Contrast used: mL of (None if empty) Oral contrast used: (None if empty) FINDINGS: Examination limited by lack of IV contrast. LUNGS/ PLEURA: There are multiple bilateral pulmonary nodules. Right upper lobe tiny nodule just ante rior to the oblique fissure image 111 series 4 likely calcified granuloma. Right lower lobe solid nod ule image 139 series 4 is 8 x 7 mm. Right lower lobe solid nodule image 145 is 3.7 mm. Left upper lobe solid subpleural nodule image 78 is 6.5 x 6.5 mm. Left upper lobe solid nodule image 116 is 8 x 8 mm. Left upper lobe solid nodule is 4 mm image 122. Left upper lobe solid nodule with sl ightly spiculated margin 10 x 8 mm image 162. Left lower lobe solid nodule laterally is 3 mm image 18 9. Left lower lobe solid nodule more medially image 188 and 7.75 x 7.25 cm No consolidation, effusion , pneumothorax. AIRWAY: Central airways are patent. LOWER NECK: No significant findings. MEDIASTINUM: Nonenlarged nodes are seen. No enlarged by CT criteria nodes are seen.. HEART: Normal heart size. No significant coronary artery calcifications.. No appreciable pericardial effusion. VASCULATURE: No significant aortic calcifications.. Ascending aorta is 3.1 CM, descending is 2.2 CM. Aorta is considered normal in size. Pulmonary trunk measures 2.6 CM. Pulmonary trunk is normal in size. Vessels otherwise not further ass essed without contrast. SOFT TISSUES/LYMPH NODES: Unremarkable soft tissues. No axillary adenopathy. UPPER ABDOMEN: No significant findings. Minor aortic calcification at the diaphragmatic hiatus. MUSCULOSKELETAL: No acute osseous abnormalities. Mild disc degeneration changes are present throughou t the thoracolumbar spine. IMPRESSION: EXAM PERFORMED ION BRONCH, PREPROCEDURE. MULTIPLE SOLID BILATERAL PULMONARY NODULES, LARGEST IN THE LEFT UPPER LOBE MEASURING 10 X 8 MM.
--- NOTE | 2023-10-19 14:18 | P.PCN ---
Date of Procedure: 10/19/23 Description of Procedure: Preoperative Diagnosis: Left Upper lobe pulmonary nodule #1 measuring 8 mm in size Left upper lobe pulmonary nodule #2 measuring 6 mm in size Postoperative Diagnosis: same Procedure(s) Performed: Flexible bronchoscopy Robotic-assisted bronchoscopy and addition to radial ultrasound evaluation of the left upper lobe pulmonary nodule #1 and #2 Robotic-assisted transbronchial needle aspirate, transbronchial biopsies of the left upper lobe pulmonary nodule #1 in addition to a bronchioloalveolar lavage Robotic-assisted transbronchial needle aspirate, transbronchial biopsies of the left upper lobe pulmonary nodule # 2 in addition to a bronchioloalveolar lavage Endobronchial ultrasound Transbronchial needle aspirate of subcarinal station 7 lymph node, Ebus guided Anesthesia: GETA Surgeon: Elmo Roche Estimated Blood Loss (ml): 0 Pathology: other Condition: stable Disposition: same day Operative Findings: A physical exam was performed. Informed consent was obtained from the patient after explaining all the risks (pneumothorax, life threatening bleeding, infection and adverse effects due to medications), benefits and alternatives to the procedure which the patient appeared to understand and so stated. The patient was connected to the monitoring devices. General anesthesia was induced and the patient was intubated by anesthesia. A final timeout was performed and the procedure confirmed by the attending staff bronchoscopist. The bronchoscope was inserted and the airway examined. The flexible bronchoscope was removed and the robotic bronchoscope was inserted. Registration was completed. I next guided the robotic bronchoscope using the navigation system into the superior segment of the lingula, targeting pulmonary nodule #1 measuring 8 mm in size.. Once in proper position, the bronchoscope was frozen. The radial EBUS probe was placed through the bronchoscope and confirmed abnormal u/s images vs normal lung. A needle was placed through the working channel and under fluoroscopic guidance, we sampled the area thought to have the mass twice. We then used a cloud biopsy pattern with ultrasound confirmation for 2 additional passes with the needle. U/S evaluation was then used to reconfirm location. Forceps were next introduced through working channel and extended the appropriate distance and 3 transbronchial biopsies were performed using fluoroscopic guidance. The u/s probe was then reinserted to confirm location. When confirmed this process was repeated for a total of 8-10 transbronchial biopsies. After reassessment with EBUS, a brush was placed through the extendable working channel for 1 pass with fluoroscopic guidance. U/S evaluation was then used to confirm location. 40ml of saline was then instilled into the area of the lesion. The robotic bronchoscope was removed and the airway inspected with a flexible bronchoscope and 10 ml of effluent from the BAL was collected. The aspirate was bloody and ultimately declotted and based on that, the sample was discarded. I next guided the robotic bronchoscope using the navigation system into the left upper apical anterior segment targeting pulmonary nodule #2 measuring 6 mm in size.. Once in proper position, the bronchoscope was frozen. The radial EBUS probe was placed through the bronchoscope and confirmed abnormal u/s images vs normal lung.he had ultrasound signal was not adequate. A needle was placed through the working channel and under fluoroscopic guidance, we sampled the area thought to have the mass twice. We then used a cloud biopsy of the left upper lobe pulmonary nodule. A total of 6 biopsies were taken. Subsequently, the catheter guide was removed and the patient was disconnected from the robot. Endobronchial ultrasound was inserted for mediastinal lymph nodes evaluation. A complete examination of the mediastinal lymph nodes revealed a 2 cm subcarinal lymph node. Using a 22-gauge needle, transbronchial needle aspirate of the subcarinal lymph node was done and a total of 3 passes were taken. The endobronchial ultrasound was removed and the procedure was terminated. Flex. bronchoscope was inserted and regular suctioning was done. At the completion of the procedure, no residual secretions or bloody material within the airway. The bronchoscope was removed. The patient was extubated. FINDINGS: 1.The airways appeared normal 2 Successful navigation, ultrasonographic identification, and biopsiesleft upper lobe pulmonary nodule #1 and #2 3.The the radial ultrasound view was eccentric/concentric 4. endobronchial ultrasound with transbronchial needle aspirate of subcarinal lymph node RECOMMENDATIONS: Await pathology and cytology results The referring physician will be alerted to the results when available. The patient was advised to follow up with the referring physician with the biopsy results Patient will be called with results.
[2023-10-19 14:23] VITALS: TEMP 97.1
--- NOTE | 2023-10-19 14:39 | XR ---
EXAMINATION TYPE: XR chest 1V portable DATE OF EXAM: 10/19/2023 COMPARISON: 11/19/2010 INDICATION: Post bronchoscopy TECHNIQUE: Single frontal view of the chest is obtained. FINDINGS: The heart size is normal. The pulmonary vasculature is normal. There is a left upper suprahilar infiltrate. Some mild increased central lung markings are present. N o pneumothorax is evident. IMPRESSION: 1. No pneumothorax post bronchoscopy. 2. Left upper lobe infiltrate.
--- NOTE | 2023-10-19 14:48 | FL ---
EXAMINATION TYPE: FL bronchoscopy DATE OF EXAM: 10/19/2023 FLUOROSCOPY Fluoroscopy time of 3 minutes 22 seconds was used during left lung bronchoscopy. 1 image/s document/ s the procedure. DAP: 6.1955 Gycm2
[2023-10-19 15:18] VITALS: RESP 18
[2023-10-19 15:45] VITALS: BP 102/65; PULSE 56
== END 2023-10-19 16:33 | disposition home or self-care (01) ==
LOC: ORWHC2ENDO 10:52
PROVIDERS: ATTEND Internal Medicine Critical Care Medicine
DX: C34.12 Malignant neoplasm of upper lobe, left bronchus or lung (principal); C18.7 Malignant neoplasm of sigmoid colon; Z80.9 Family history of malignant neoplasm, unspecified; Z90.49 Acquired absence of other specified parts of digestive tract; J44.9 Chronic obstructive pulmonary disease, unspecified; N83.202 Unspecified ovarian cyst, left side; Z79.899 Other long term (current) drug therapy
CPT/HCPCS: 88108; 88305; 88173; 88342; 88341; 71045; 71250; 31628; 31629; 31633; 31623; 31624; 31652; J2250; J0330; J2710; J2001; J3010; J2704; S2900